=== PATIENT | female | born 1970 | race Caucasian/White ===

== ENCOUNTER 2023-01-07 10:00 | Outpatient (CLI) | payer BC | END 2023-01-07 10:01 | disposition home or self-care (01) | LOC: CSHLAB 10:00 | PROVIDERS: ATTEND Obstetrics & Gynecology | DX: Z01.818 Encounter for other preprocedural examination (principal); N81.9 Female genital prolapse, unspecified | CPT/HCPCS: 84703; 86850; 86900; 86901; 93005; 93010 ==

== ENCOUNTER 2023-01-11 05:41 | Observation (INO) | payer BC ==
[2023-01-07 11:39] LABS: Hemoglobin 13.6 g/dL (12.0-15.5); Mean Corpuscular HGB CONC 32.5 g/dL (32.0-36.0); Mean Corpuscular Hemoglobin 29.2 pg (27.0-33.0); Mean Corpuscular Volume 89.9 fl (81.6-98.3); Platelet Count 250 10x3/uL (150-450); RBC Distribution Width 12.5 % (11.5-14.5); Red Blood Cell (RBC) Count 4.65 10x6/uL (3.90-5.03); White Blood Cell (WBC) Count 5.2 10x3/uL (3.5-10.5)
[2023-01-07 11:59] LABS: BHCG - Serum Negative (NEGATIVE); Pregs Control Background? CLEAR/WHITE (CLR/WHITE); Pregs Control Bar Appear? YES (CONTROL BAR)
[2023-01-07 12:00] LABS: Anion Gap 14 mmol/L (10-20); BUN (Urea Nitrogen) 16 mg/dL (7.0-18.7); Calc. Creatinine Clearance 0 mL/min (70-130); Calcium 9.3 mg/dL (7.8-10.44); Carbon Dioxide 29 mmol/L (22-29); Chloride 100 mmol/L (98-107); Estimated GFR 87; Glucose 122 mg/dL (70-105); Potassium 3.9 mmol/L (3.5-5.1); Sodium 139 mmol/L (136-145)
[2023-01-07 14:10] VITALS: BMI 26.6
[2023-01-11] MEDS ORDERED: Gabapentin 300 MG CAP ONE (06:22)
[2023-01-11] MEDS ORDERED: Famotidine/PF 20 mg/2ml Vial ONE (06:23)
[2023-01-11] MEDS ORDERED: CeleCOXIB 100 MG CAP ONE (06:24)
[2023-01-11] MEDS ORDERED: CEFAZOLIN 2 GM VIAL ONE (06:54)
[2023-01-11] MEDS ORDERED: Lidocaine 1% MPF 2 ML VIAL ONE (06:57)
[2023-01-11 08:13] LABS: SARS-CoV-2 NAA Rapid Test Not Detected (NotDetected)
[2023-01-11] MEDS ORDERED: PROPOFOL 20 ML ONE (08:40)
[2023-01-11] MEDS ORDERED: Fentanyl 100 MCG/2 ML VIAL ONE ×4 (08:40→11:34)
[2023-01-11] MEDS ORDERED: Lidocaine 1% w/Epinephrine 1:200K 30 ML VIAL ONE (08:45)
[2023-01-11] MEDS ORDERED: Bupivacaine HCl 0.5%/Epinephrine 1:200,000/PF 30 ml Vial ONE (08:45)
[2023-01-11] MEDS ORDERED: Ondansetron PF 4 MG/2 ML Vial ONE (08:49)
[2023-01-11] MEDS ORDERED: Lidocaine 1% PF 5 ML VIAL ONE (08:49)
[2023-01-11] MEDS ORDERED: Dexamethasone 4 mg/ml Vial ONE (08:49)
[2023-01-11] MEDS ORDERED: Rocuronium Bromide 10 MG/ML (10ML VIAL) ONE (08:49)
[2023-01-11] MEDS ORDERED: Promethazine HCl 25 MG/ML VIAL ONE (08:50)
[2023-01-11] MEDS ORDERED: Midazolam HCl 2 mg/2 ml Vial ONE (08:59)
[2023-01-11] MEDS ORDERED: Glycopyrrolate 0.2 MG/ML 5 ML SYRINGE ONE (09:43)
[2023-01-11] MEDS ORDERED: Ketorolac Tromethamine 30 MG/ML VIAL ONE (10:24)
[2023-01-11] MEDS ORDERED: ePHEDrine Sulfate 50 MG/10 ML VIAL ONE (10:42)
[2023-01-11] MEDS ORDERED: Zolpidem Tartrate 5 MG TAB PO PRN (11:42)
[2023-01-11] MEDS ORDERED: diphenhydrAMINE 25 MG CAP PO PRN (11:42)
[2023-01-11] MEDS ORDERED: Promethazine HCl 25 MG/ML VIAL IM PRN (11:42)
[2023-01-11] MEDS ORDERED: traMADol HCl 50 MG TAB PO PRN ×2 (11:42)
[2023-01-11] MEDS ORDERED: Bisacodyl 10 MG SUPP PR PRN (11:42)
[2023-01-11] MEDS ORDERED: Ondansetron PF 4 MG/2 ML Vial IVP PRN (11:42)
[2023-01-11] MEDS ORDERED: Fentanyl 100 MCG/2 ML VIAL SLOW IVP PRN (11:42)
[2023-01-11] MEDS ORDERED: HYDROcodone/Acetaminophen 5/325 mg Tablet PO PRN (11:42)
[2023-01-11] MEDS: Ketorolac Tromethamine 30 MG/ML VIAL IVP SCH ×2 (16:52→22:37)
[2023-01-11] MEDS: Simethicone Chewable 80 MG TAB PO PRN ×2 (16:53→22:40)
[2023-01-11] MEDS: Docusate 100 MG CAP PO SCH (21:04)
[2023-01-11] MEDS: HYDROcodone/Acetaminophen 5/325 mg Tablet PO PRN (21:05)
[2023-01-12] MEDS: Ketorolac Tromethamine 30 MG/ML VIAL IVP SCH (04:30)
[2023-01-12 05:07] LABS: Hemoglobin 11.6 g/dL (12.0-15.5); Mean Corpuscular Hemoglobin 29.4 pg (27.0-33.0); Mean Corpuscular Volume 89.1 fl (81.6-98.3); Mean Platelet Volume 9.2 fl (7.4-10.4); Platelet Count 192 10x3/uL (150-450); RBC Distribution Width 12.6 % (11.5-14.5); Red Blood Cell (RBC) Count 3.94 10x6/uL (3.90-5.03); White Blood Cell (WBC) Count 8.4 10x3/uL (3.5-10.5)
[2023-01-12 08:08] VITALS: BP 109/57; TEMP 98.3
[2023-01-12] MEDS: Docusate 100 MG CAP PO SCH (08:20)
[2023-01-12] MEDS: HYDROcodone/Acetaminophen 5/325 mg Tablet PO PRN (08:46)
[2023-01-12] MEDS ORDERED: [UNRECOGNIZED DRUG - MIXTURE] PO SCH (09:00)
[2023-01-12] MEDS ORDERED: LACTINEX 1 TAB PO SCH (09:00)
[2023-01-16] MEDS ORDERED: Ibuprofen 800 MG TAB PO SCH (22:00)
== END 2023-01-12 10:27 | disposition home or self-care (01) ==
LOC: CSHSDC 05:41 → CSHPED 12:30
PROVIDERS: ADMIT Obstetrics & Gynecology; ATTEND Obstetrics & Gynecology
PROC: 0UT94ZZ Resection of Uterus, Percutaneous Endoscopic Approach (ICD-10-PCS; principal; 2023-01-11)
PROC: 0UT24ZZ Resection of Bilateral Ovaries, Percutaneous Endoscopic Approach (ICD-10-PCS; 2023-01-11)
PROC: 0UT74ZZ Resection of Bilateral Fallopian Tubes, Percutaneous Endoscopic Approach (ICD-10-PCS; 2023-01-11)
PROC: 0JQC3ZZ Repair Pelvic Region Subcutaneous Tissue and Fascia, Percutaneous Approach (ICD-10-PCS; 2023-01-11)
PROC: 0JQC3ZZ Repair Pelvic Region Subcutaneous Tissue and Fascia, Percutaneous Approach (ICD-10-PCS; 2023-01-11)
DX: N81.3 Complete uterovaginal prolapse (principal); N81.9 Female genital prolapse, unspecified; N81.2 Incomplete uterovaginal prolapse; R19.2 Visible peristalsis; N84.0 Polyp of corpus uteri; N73.6 Female pelvic peritoneal adhesions (postinfective); N83.312 Acquired atrophy of left ovary; N83.311 Acquired atrophy of right ovary; E11.9 Type 2 diabetes mellitus without complications; N83.8 Other noninflammatory disorders of ovary, fallopian tube and broad ligament; Z98.84 Bariatric surgery status; Z20.822 Contact with and (suspected) exposure to COVID-19
CPT/HCPCS: 84703; 85027; 86850; 86900; 86901; 88305; 93005; 93010; J1100; J1885; J2250; J2405; J2550; J2704; J3010; S0028; U0002